=== PATIENT | male | born 1970 | race African-American/Black ===

== ENCOUNTER 2016-12-21 12:15 | Day surgery (SDC) | payer OTHER ==
[~2016-12-21] VITALS: Ht 182.9 cm; Wt 90.9 kg
[2016-12-21 12:44] VITALS: Ht 182.9 cm; Wt 90.9 kg
[2016-12-21] MEDS ORDERED: MAGN500C PO (13:09)
[2016-12-21 13:20] VITALS: BP 136/83; PULSE 94; RESP 18
[2016-12-21] MEDS ORDERED: PROPOFOL 40 ML ONE (14:36)
[2016-12-21 15:52] VITALS: BP 122/77; RESP 20
--- NOTE | 2016-12-21 18:28 | GILP ---
DATE OF PROCEDURE: 12/21/2016 NAME OF PROCEDURE: Colonoscopy and biopsy. SURGEON: Socorro Russ MD PREOPERATIVE DIAGNOSES: History of ulcerative colitis. POSTOPERATIVE DIAGNOSES: 1. Colonoscopy all the way to the cecum and into the terminal ileum. 2. Normal terminal ileum. 3. Normal colonic mucosa. 4. Random biopsies were taken to rule out microscopic colitis. 5. Internal hemorrhoids. INDICATION FOR THE PROCEDURE: Mr. Erik Mckenzie is a 46-year-old male patient who had a longstandi ng history of ulcerative colitis. The patient was not on any medications. The patient was schedule d for colonoscopy for further evaluation. The procedure and possible complications are well explained to the patient, he understood and consen lawrence to the procedure. DESCRIPTION OF PROCEDURE: Under the influence of anesthesia, the colonoscope was carefully introduc ed in the rectum and under direct vision, it was advanced all the way to the cecum and through the i leocecal valve into the terminal ileum. FINDINGS: The patient had normal terminal ileum. The colonic mucosa was normal. Random biopsies w ere taken to rule out microscopic colitis. The patient had internal hemorrhoids. He tolerated the procedure very well and there was no complication from the procedure. At the end o f the procedure, he was awake with stable vital signs and he was discharged home to the care of his family. IMPRESSION: 1. Colonoscopy all the way to the cecum and into the terminal ileum. 2. Normal terminal ileum. 3. Normal colonic mucosa. 4. Random biopsies were taken to rule out microscopic colitis. 5. Internal hemorrhoids. PLAN: Await histopathology report. Dictated By: SOCORRO RUSS MD GD/NTS Conf#: [id number] DID#: [id number] CC: SOCORRO RSUS MD;*EndCC*
--- NOTE | 2016-12-22 20:00 | RADRPT ---
Vent Rate: 87 bpm RR Interval: 0 msec [place] Interval: 172 msec QRS Duration: 92 msec QT Interval: 384 msec QTC Interval: 462 msec P-R-T [place]: 73 - 24 - 37 degrees Normal sinus rhythm Normal ECG Electronically Signed By: Mark Bundy [id number]
== END 2016-12-21 15:27 | disposition home or self-care (01) ==
LOC: GIL 12:15
PROVIDERS: ATTEND Internal Medicine Gastroenterology
DX: K64.8 Other hemorrhoids (principal)
CPT/HCPCS: 45380; 88305; 93005; Z7610